=== PATIENT | female | born 1940 | race Caucasian/White ===

== ENCOUNTER 2018-03-25 16:54 | Emergency (ER) | payer MEDICARE, BC ==
[2018-03-25 17:24] VITALS: BP 169/82
[2018-03-25] MEDS ORDERED: Albuterol/Ipratropium NEB.SOL* Albuterol 2.5 MG/Ipratropium 0.5 MG 3 ML INH ONE (17:29)
--- NOTE | 2018-03-25 18:14 | RAD ---
INDICATION: Chest tightness COMPARISON: Chest x-ray dated July 13, 2007 TECHNIQUE: PA and lateral views of the chest were obtained. FINDINGS: The heart and mediastinum are normal in size and contour. The lungs are grossly clear. There is no evidence of large pleural effusion. Visualized bones are normal for the patient's age. There is no radiographic evidence of free air beneath the diaphragm IMPRESSION: No radiographic evidence of acute cardiopulmonary disease.
--- NOTE | 2018-03-25 18:57 | ED ---
Respiratory - HPI Summary HPI Summary: 77 yo h/o COPD and left upper lobe adenocarcinoma dx'd 2015 s/p radiation last round 3 weeks ago c/o chest tightness with recent dx of bronchitis on Z joby x 2 days given by her PCP and still feels chest tightness. Denies f/c/cough/n/v/d, on home oxygen at night - History of Current Complaint Chief Complaint: UCRespiratory Stated Complaint: URI Time Seen by Provider: 03/25/18 17:27 Hx Obtained From: Patient Onset/Duration: Sudden Onset Timing: Constant Initial Severity: Worse Since: - taking z joby Current Severity: Moderate Pain Intensity: 6 Sputum Amount: Moderate Aggravating Factor(s): Nothing Alleviating Factor(s): Nothing - Allergy/Home Medications Allergies/Adverse Reactions: Allergies Allergy/AdvReac Type Severity Reaction Status Date / Time No Known Allergies Allergy Verified 03/25/18 17:24 PMH/Surg Hx/FS Hx/Imm Hx Previously Healthy: Yes Respiratory History: Reports: Hx Chronic Obstructive Pulmonary Disease (COPD), Other Respiratory Problems/Disorders - LEFT UPPER LOBE LUNG CA Infectious Disease History: No Infectious Disease History: Denies: Traveled Outside the [place] in Last 30 Days - Social History Alcohol Use: None Substance Use Type: Reports: None Smoking Status (MU): Former Smoker Review of Systems Constitutional: Negative Positive: Fever Eyes: Negative ENT: Negative Cardiovascular: Negative Positive: Other - "chest tightness" Gastrointestinal: Negative Genitourinary: Negative Musculoskeletal: Negative Skin: Negative Neurological: Negative Psychological: Normal All Other Systems Reviewed And Are Negative: Yes Physical Exam Triage Information Reviewed: Yes Vital Signs On Initial Exam: Initial Vitals Temp Pulse Resp BP Pulse Ox 36.9 C 99 18 169/82 94 03/25/18 17:20 03/25/18 17:20 03/25/18 17:20 03/25/18 17:20 03/25/18 17:20 Vital Signs Reviewed: Yes Appearance: Positive: No Pain Distress Skin: Positive: Warm Head/Face: Positive: Normal Head/Face Inspection Eyes: Positive: Normal ENT: Positive: Normal ENT inspection Neck: Positive: Supple, No Lymphadenopathy Respiratory/Lung Sounds: Positive: Decreased Breath Sounds - left upper lobe Cardiovascular: Positive: Normal, RRR, S1, S2 Abdomen Description: Positive: Nontender Musculoskeletal: Positive: Normal Neurological: Positive: Normal, CN Intact II-III Diagnostics - Vital Signs Vital Signs Temp Pulse Resp BP Pulse Ox 03/25/18 17:20 36.9 C 99 18 169/82 94 - Laboratory Lab Statement: Any lab studies that have been ordered have been reviewed, and results considered in the medical decision making process. Disposition - Course Course Of Treatment: Chest tightness improved drastically with DUoneb in UC., CXR has some left upper mass vs scarring, c/w h/o adenoca and radiation, mild B/ B haziness but read by radiologist as no acute pulmonary dz as compared to the CXR from last july 2017. Advised pt to use nebs at home, Home O2 during the day if needed, and to continue the Zpak along with small 5 day QD course of prednisone, but to GO TO ER RIGHT AWAY if SOB/chest tightness persists, PT's O2 sat was 94% today which is consistent with her baseline of 94-96% per pt. - Diagnoses Provider Diagnoses: COPD exacerbation, Bronchitis Discharge - Sign-Out/Discharge Documenting (check all that apply): Discharge/Admit/Transfer - Discharge Plan Condition: Stable Disposition: HOME Prescriptions: Albuterol 0.5% CONC NEB.SABRA* 1 ml .SEE ORDER QID 30 Days #30 neb.soln predniSONE TAB* [Deltasone TAB*] 10 mg PO DAILY 5 Days #5 tab Patient Education Materials: COPD (Chronic Obstructive Pulmonary Disease) (ED) , Chronic Bronchitis (ED) Referrals: Kofi Solorzano MD [Primary Care Provider] - Additional Instructions: GO TO ER IF SHORTNESS OF BREATH PERSISTS - Billing Disposition and Condition Condition: STABLE Disposition: HOME
== END 2018-03-25 19:05 | disposition home or self-care (01) ==
LOC: UCEAST 16:54
DX: J44.1 Chronic obstructive pulmonary disease with (acute) exacerbation (principal); Z87.891 Personal history of nicotine dependence
CPT/HCPCS: 71046; 99212; A9270-GY; G0463